=== PATIENT | male | born 1970 | race Caucasian/White ===

== ENCOUNTER 2018-10-01 00:32 | Emergency (ER) | payer SELFPAY ==
[~2018-10-01] VITALS: Ht 190.5 cm; Wt 81.7 kg
[2018-10-01] MEDS ORDERED: ALBU2.5V5 NEB (01:12)
[2018-10-01] MEDS ORDERED: ALBU90OI61 INH (01:13)
[2018-10-01] MEDS ORDERED: Prednisone20 MG PO (01:32)
== END 2018-10-01 01:47 | disposition home or self-care (01) ==
LOC: ER 00:32
DX: J45.909 Unspecified asthma, uncomplicated (principal); Z79.899 Other long term (current) drug therapy; Z87.891 Personal history of nicotine dependence
CPT/HCPCS: 71046; 93005; 93010; 94640; 99285-25